=== PATIENT | female | born 1980 | race Caucasian/White ===

== ENCOUNTER 2017-04-22 15:04 | Emergency (ER) | payer SELFPAY ==
[2017-04-22 15:08] VITALS: BMI 36.6
--- NOTE | 2017-04-22 16:18 | DR.DIARMA ---
HPI - Time seen Time seen: 16:18 - PCP Primary Care Physician: NFD - Complaint Chief Complaint Doctor Comments: Patient is complaining of diarrhea with pain last night with mucoid stool with blood today. States she has been taking Clindymycin 300mg q6h for abscess took for over two weeks from her dentist. She denies nausea, vomiting, cold or cough. States she has stomach pain like she has to go to the bathroom but when she goes it is only a small amount of stool. She denies hemorrhoids. She denies hematuria or any recent trauma. She smokes one pack cigarettes daily but denies alcohol usage. States her last period was Feb 28 but her periods are usually irregular. Chief Complaint:: PT C/O DIARRHEA AND HAVING MUCOUS AND BLOOD IN HER STOOL. PT. IS CURRENTLY ON ANTIBIOTICS AND HAS BEEN FOR 2.5 WEEKS. PT. IS ON CLINDAMYCIN PO. - Reviewed Nurses notes reviewed: Yes - Source History Provided: Patient - Mode of Arrival Mode of Arrival: Ambulatory - Timing Onset of Chief Complaint: 04/22/17 Came on: Gradually - Duration Duration: Constant How lon Duration: Days - Severity Number of Diarrhea Episodes in last 24 hours: unsure - Quality Quality of Diarrhea: Bloody - Context Onset: Spontaneous Recent: Antibiotic use Diarrhea history of: None - Associated signs and symptoms Associated signs and symptoms: Abdominal pain - If abdominal pain present Quality: Cramping Location of Abdominal Pain: LLQ PMH - PMH Past Medical History: No Past Medical History: Asthma Past Surgical History: No Surgical History: No History - Family History History of Family Medical Conditions: Yes Family Medical History: Diabetes Mellitus, Hypertension - Social History Does patient currently use any type of tobacco product: Yes Have you used tobacco products in the last 12 months: Yes Type of Tobacco Use: Cigarettes Does any household member use tobacco: No Alcohol Use: None Do you use any recreational Drugs:: No Lives With: Significant Other Lives Where: Home - infectious screening In the last 2 months have you had wt loss of >10#?: NO Have you had fever, night sweats or hemotysis?: No Have you traveled outside the country in the last 6 months?: No Isolation: Standard ROS - Review of Systems Constitutional: No Symptoms Reported. negative: See HPI, Chills, Diaphoresis, Fever, Malaise, Weakness, Irritable, Fatigue, Loss of Appetite, Other Eyes: No Symptoms Reported ENTM: No Symptoms Reported Respiratoy: No Symptoms Reported. negative: See HPI, Productive Cough, Non- Productive Cough, Moist Cough, Dry Cough, Hacking Cough, Barking Cough, Brassy Cough, Orthopnea, Short of Breath, Stridor, Wheezing, Hemoptysis, Other Cardiovascular: No Symptoms Reported Gastrointestinal/Abdominal: No Symptoms Reported, Abdominal Pain, Diarrhea, Nausea, Vomiting Genitourinary: No Symptoms Reported. negative: See HPI, Discharge, Dysuria, Frequency, Hematuria, Pain, Bleeding, Other Neurological: No Symptoms Reported Musculoskeletal: No Symptoms Reported Integumentary: No Symptoms Reported Hematologic/Lymphatic: No Symptoms Reported. negative: See HPI, Anemia, Blood Clots, Easy Bleeding, Easy Bruising, Swollen Glands, Lymphadenopathy, Other Endocrine: No Symptoms Reported Psychiatric: No Symptoms Reported PE - Vital Signs Vitals: Temperature 98.6 F Pulse Rate 98 Respiratory Rate 18 Blood Pressure [Left Arm] 123/67 Blood Pressure [Right Arm] 135/72 Blood Pressure 121/72 O2 Sat by Pulse Oximetry 97 - General Limitations: No Limitations General Appearance: Alert, In No Apparent Distress - Head Head Exam: Normal Inspection, Atraumatic, Normocephalic - Eyes Eye exam: Normal Appearance, PERRL, EOMI. negative: Scleral Icterus, Conjunctival Injection, Nystagmus, Miosis, Mydrasis, Periorbital Swelling, Periorbital Tenderness, Other - ENT ENT Exam: Normal Exam, Normal Oropharynx, Normal External Ear Exam, Mucous Membranes Moist, TM's Normal Bilaterally - Neck Neck Exam: Normal Inspection, Full ROM, Trachea Midline. negative: Tenderness, Meningismus, Lymphadenopathy, Thyromegaly, Other - Chest Chest Inspection: Normal Inspection, Symmetric Chest Wall Rise - Respiratory Respiratory Exam: Normal Lung Sounds Bilat Respiratory Exam: Bilateral Clear to Auscultation - Cardiovascular Cardiovascular Exam: Regular Rate, Normal Rhythm, Normal Heart Sounds - Abdominal Exam Abdominal Exam: Normal Inspection, Normal Bowel Sounds, Soft Abdominal Tenderness: LLQ, Mild - Rectal Rectal: Deferred - Genitourinary Scrotum: Deferred, Other (this is a female patient.) Hernia: Deferred Prostate: Deferred, Other (this is a female patient) - Extremeties Extremities Exam: Normal Inspection, Full ROM, Normal Capillary Refill. negative: Tenderness, Edema, Joint Swelling, Calf Tenderness, Other - Back Back Exam: Normal Inspection, Full ROM. negative: Tenderness, (R) CVA Tenderness, (L) CVA Tenderness, Muscle Spasm, Paraspinal Tenderness, Vertebral Tenderness, Rashes, (R) Sciatic Notch Tenderness, (L) Sciatic Notch Tendern, (R ) Straight Leg Raise, (L) Straight Leg Raise, Other - Neurologic Neurological Exam: Alert, Oriented X3, CN II-XII Intact, Normal Gait, Reflexes Normal - Psychiatric Psychiatric Exam: Normal Affect, Normal Mood - Skin Skin Exam: Warm, Dry, Intact, Normal Color ROR - Labs Reviewed Laboratory Results Reviewed?: Yes (all labs and x-rays reviewed and discussed with patient) Result Diagrams: 04/22/17 16:44 04/22/17 16:44 Laboratory: WBC 14.0 X10^3/uL (3.6-10.0) H 04/22/17 16:44 RBC 4.92 X10^6/uL (3.5-5.4) 04/22/17 16:44 Hgb 14.9 g/dL (12.0-16.0) 04/22/17 16:44 Hct 43.7 % (36.0-47.0) 04/22/17 16:44 MCV 88.6 fL (80.0-100.0) 04/22/17 16:44 MCH 30.2 pg (27.0-34.0) 04/22/17 16:44 MCHC 34.1 g/dL (33.0-35.0) 04/22/17 16:44 RDW 13.1 % (11.6-16.5) 04/22/17 16:44 Plt Count 374 X10^3/uL (150.0-450.0) 04/22/17 16:44 MPV 8.0 fL (7.4-11.0) 04/22/17 16:44 Neut % 62.2 % (42.0-75.0) 04/22/17 16:44 Lymph % 30.4 % (21.0-51.0) 04/22/17 16:44 [place] % 4.6 % (0.0-13.0) 04/22/17 16:44 Eos % 2.1 % (0.9-2.9) 04/22/17 16:44 Baso % 0.7 % (0.2-1.0) 04/22/17 16:44 Neut # 8.7 x10^3/uL (2.2-4.8) H 04/22/17 16:44 Lymph # 4.3 X10^3/uL (1.3-2.9) H 04/22/17 16:44 [place] # 0.6 x10^3/uL (0.3-0.8) 04/22/17 16:44 Eos # 0.3 x10^3/uL (0.0-0.2) H 04/22/17 16:44 Baso # 0.1 X10^3/uL (0.0-0.1) 04/22/17 16:44 Absolute Nucleated RBC 0.0 /100WBC 04/22/17 16:44 Sodium 139 mmol/L (136-145) 04/22/17 16:44 Corrected Sodium TNP 04/22/17 16:44 Potassium 3.9 mmol/L (3.5-5.1) 04/22/17 16:44 Chloride 103 mmol/L (98-107) 04/22/17 16:44 Carbon Dioxide 28.6 mmol/L (21-32) 04/22/17 16:44 BUN 10 mg/dL (7-18) 04/22/17 16:44 Creatinine 0.84 mg/dL (0.55-1.02) 04/22/17 16:44 Est GFR (MDRD) Af Amer > 60 (>60) 04/22/17 16:44 Est GFR (MDRD) Non-Af > 60 (>60) 04/22/17 16:44 Glucose 78 mg/dL (65-99) 04/22/17 16:44 Calcium 8.9 mg/dL (8.5-10.1) 04/22/17 16:44 Corrected Calcium TNP 04/22/17 16:44 Total Bilirubin 0.40 mg/dL (0.2-1.0) 04/22/17 16:44 AST 31 Units/L (15-37) 04/22/17 16:44 ALT 64 Units/L (12-78) 04/22/17 16:44 Alkaline Phosphatase 85 Units/L (46-116) 12/09/17 16:44 Total Protein 8.0 g/dL (6.4-8.2) 04/22/17 16:44 Albumin 3.7 g/dL (3.4-5.0) 04/22/17 16:44 Globulin 4.3 g/dL (2.5-4.5) 04/22/17 16:44 Albumin/Globulin Ratio 0.9 Ratio (1.1-2.1) L 04/22/17 16:44 Amylase 38 Units/L (25-115) 04/22/17 16:44 Lipase 136 Units/L (73-393) 04/22/17 16:44 HCG, Qual Negative <10 mIU/mL 04/22/17 16:44 Specimen Type Clean catch urine 04/22/17 17:07 Urine Color Yellow (YELLOW) 04/22/17 17:07 Urine Appearance Slightly hazy (CLEAR) 04/22/17 17:07 Urine pH 5.0 (5.0 - 8.0) 04/22/17 17:07 Ur Specific [place] 1.015 (1.000-1.030) 04/22/17 17:07 Urine Protein Negative (NEGATIVE) 04/22/17 17:07 Urine Glucose (UA) Negative (NEGATIVE) 04/22/17 17:07 Urine Ketones Negative (NEGATIVE) 04/22/17 17:07 Urine Occult Blood 3+ (NEGATIVE) 04/22/17 17:07 Urine Nitrite Negative (NEGATIVE) 04/22/17 17:07 Urine Bilirubin Negative (NEGATIVE) 04/22/17 17:07 Urine Urobilinogen Normal (NORMAL) 04/22/17 17:07 Ur Leukocyte Esterase Negative (NEGATIVE) 04/22/17 17:07 Urine RBC 0 - 3 /HPF (NEGATIVE) 04/22/17 17:07 Urine WBC Rare /HPF (NEGATIVE) 04/22/17 17:07 Ur Squamous Epith Cells Moderate /HPF (NEGATIVE) 04/22/17 17:07 Urine Bacteria Trace /HPF (NEGATIVE) 04/22/17 17:07 Ur Culture Indicated? No/not indicated 04/22/17 17:07 - XRAY XRAY Interpreted by: Radiologist (CT abdomen: Boderline thickening of rectum and distal colon suggest proctocolitis.) - Diagnosis Discharge Problem: Proctocolitis with rectal bleeding Diarrhea Qualifiers: Diarrhea type: unspecified type Qualified Code(s): R19.7 - Diarrhea, unspecified Hematuria Qualifiers: Hematuria type: asymptomatic microscopic Qualified Code(s): R31.21 - Asymptomatic microscopic hematuria - Discharge Plan Disposition: 01 HOME, SELF-CARE Condition: Stable Prescriptions: Hydrocortisone Supp 25 mg [Anucort-Hc Supp] 25 mg DE BID #24 sup Metronidazole [Flagyl Tab 500 mg] 500 mg PO DAILY PRN #20 tab PRN Reason: - Follow ups/Referrals Follow ups/Referrals: NFD,None [Primary Care Provider] - 3 days ANA MAYBERRY [STAFF PHYSICIAN] - 3 days - Instructions Instructions: Bloody Diarrhea, Colitis
[2017-04-22 16:55] LABS: BASOPHILS # (AUTO) 0.1 X10^3/uL (0.0-0.1); BASOPHILS % (AUTO) 0.7 % (0.2-1.0); EOSINOPHILS # (AUTO) 0.3 x10^3/uL (0.0-0.2); EOSINOPHILS % (AUTO) 2.1 % (0.9-2.9); HEMATOCRIT 43.7 % (36.0-47.0); HEMOGLOBIN 14.9 g/dL (12.0-16.0); LYMPHOCYTES # (AUTO) 4.3 X10^3/uL (1.3-2.9); LYMPHOCYTES % (AUTO) 30.4 % (21.0-51.0); MEAN CORPUSCULAR HEMOGLOBIN 30.2 pg (27.0-34.0); MEAN CORPUSCULAR HGB CONC 34.1 g/dL (33.0-35.0); MEAN CORPUSCULAR VOLUME 88.6 fL (80.0-100.0); MONOCYTES # (AUTO) 0.6 x10^3/uL (0.3-0.8); MONOCYTES % (AUTO) 4.6 % (0.0-13.0); NEUTROPHILS # (AUTO) 8.7 x10^3/uL (2.2-4.8); NEUTROPHILS % (AUTO) 62.2 % (42.0-75.0); PLATELET COUNT 374 X10^3/uL (150.0-450.0); RED BLOOD COUNT 4.92 X10^6/uL (3.5-5.4); RED CELL DISTRIBUTION WIDTH 13.1 % (11.6-16.5)
[2017-04-22 17:10] LABS: ALANINE AMINOTRANSFERASE 64 Units/L (12-78); ALBUMIN 3.7 g/dL (3.4-5.0); ALKALINE PHOSPHATASE 85 Units/L (46-116); AMYLASE 38 Units/L (25-115); ASPARTATE AMINO TRANSFERASE 31 Units/L (15-37); BLOOD UREA NITROGEN 10 mg/dL (7-18); CALCIUM 8.9 mg/dL (8.5-10.1); CARBON DIOXIDE 28.6 mmol/L (21-32); CHLORIDE 103 mmol/L (98-107); CREATININE 0.84 mg/dL (0.55-1.02); LIPASE 136 Units/L (73-393); SODIUM 139 mmol/L (136-145); eGFR BLACK RACES > 60 (>60); eGFR NON BLACK RACES > 60 (>60)
[2017-04-22 17:12] LABS: SERUM PREGNANCY TEST, QUAL NEGATIVE <10 mIU/mL
[2017-04-22 17:17] LABS: BILIRUBIN,URINE NEGATIVE (NEGATIVE); BLOOD/HEMOGLOBIN,URINE 3+ (NEGATIVE); GLUCOSE, URINE NEGATIVE (NEGATIVE); KETONES,URINE NEGATIVE (NEGATIVE); LEUKOCYTE ESTERASE ,URINE NEGATIVE (NEGATIVE); NITRITES,URINE NEGATIVE (NEGATIVE); PROTEIN,URINE NEGATIVE (NEGATIVE); UROBILINOGEN,URINE NORMAL (NORMAL)
[2017-04-22 17:32] LABS: APPEARANCE,URINE SLIGHTLY HAZY (CLEAR); COLOR,URINE YELLOW (YELLOW); RBC,URINE 0 - 3 /HPF (NEGATIVE)
[2017-04-22 17:34] LABS: BACTERIA,URINE TRACE /HPF (NEGATIVE); SQUAMOUS EPITHELIAL CELL,UR MODERATE /HPF (NEGATIVE)
--- NOTE | 2017-04-22 18:24 | CT ---
CT abdomen and pelvis without contrast Indication: Left lower quadrant pain with melena Comparison: none available Technique: Multiple axial images of the abdomen and pelvis were obtained from the lung bases to the pubic symphy sis without the administration of IV contrast. Findings: The visualized portions of the lung bases are unremarkable. The bony structures are grossly intact. Given the limitations of lack of IV contrast administration the liver (aside for hepatic steatosis), gallbladder, spleen, pancreas, and adrenal glands are unremarkable in their CT appearance. No evidence of stone within either kidney or ureter. No hydronephrosis is identified. No bowel wall thickening or bowel dilatation is present. there is borderline thickening of the rectu m and distal colon. No rectal colonic mass. The proximal colon is normal. The appendix normal. The u rinary bladder is grossly unremarkable. No pelvic or adnexal mass. No mesenteric lymphadenopathy or stranding can be observed. No free fluid or free air is seen within the abdomen. IMPRESSION: 1. Borderline thickening of the rectum and distal colon needs clinical correlation as a very mild ac denise proctocolitis is not excluded. No free air or fluid collection identified within the pelvis. 2. Hepatic steatosis. 3. No nephrolithiasis or hydronephrosis. 4. The appendix is normal. Reported By:
[2017-04-22 19:18] VITALS: BP 119/83
== END 2017-04-22 19:18 | disposition home or self-care (01) ==
LOC: ER 15:04
DX: K51.30 Ulcerative (chronic) rectosigmoiditis without complications (principal); K62.5 Hemorrhage of anus and rectum; R19.7 Diarrhea, unspecified; R31.21 Asymptomatic microscopic hematuria
CPT/HCPCS: 36415; 74176; 80053; 81001; 82150; 83690; 84703; 85025; 99282; 99283